=== PATIENT | female | born 1990 | race Two or more races ===

== ENCOUNTER 2016-09-15 12:00 | Emergency (ER) | payer OTHER ==
[2016-09-15] MEDS ORDERED: OXYMETAZOLINE HCL 0.05% 30 SPRAYS/BOT NS ONE (13:10)
[2016-09-15] MEDS ORDERED: IBUPROFEN 800 MG TABLET ONE (13:11)
== END 2016-09-15 13:47 | disposition home or self-care (01) ==
LOC: ED 12:00
DX: J06.9 Acute upper respiratory infection, unspecified (principal); J02.9 Acute pharyngitis, unspecified
CPT/HCPCS: 87880; 99283 ×2; A9270 ×2